=== PATIENT | female | born 1965 | race American Indian/Alaskan Native ===

== ENCOUNTER 2018-10-09 10:45 | Emergency (ER) | payer MEDICAID ==
[2018-10-09 10:50] VITALS: BP 166/84
--- NOTE | 2018-10-09 11:32 | Emergency Department Report ---
ED Recheck HPI - General Chief Complaint: High BP Stated Complaint: BP UP Time Seen by Provider: 10/09/18 11:30 Source: patient Mode of arrival: Ambulatory Limitations: No Limitations - History of Present Illness Initial Comments: Patient is a pleasant 52-year-old male comes to the ER today after receivinga family member is in a coma. She states that she has a history of hypertension and after getting the nose she feels like her blood pressure went up and that she got dizzy and panicked. On exam patient is calm laughing at her brushing to the emergency room and understands to her bedand anxiety played in her symptoms today. Patient is taking her blood pressure medicines. She drove herself to the emergency room. She is ambulatory and neurologically intact. She denies chest pain shortness of breath or dizziness or any other systemic complaints - Related Data Home Medications Medication Instructions Recorded Confirmed Last Taken Enalapril Maleate [Vasotec] 5 mg PO QDAY 06/03/13 06/03/13 06/03/13 09:00 Famotidine [Pepcid] 10 mg PO QDAY 06/03/13 06/03/13 06/03/13 09:00 Ibuprofen [Motrin] 800 mg PO TID 06/03/13 06/03/13 06/03/13 12:00 metFORMIN [Glucophage] 500 mg PO QDAY 06/03/13 06/03/13 06/03/13 08:00 Previous Rx's Medication Instructions Recorded Last Taken Type Cyclobenzaprine [Flexeril] 10 mg PO TID PRN #15 tablet 06/03/13 Unknown Rx HYDROcodone/APAP 10-325 [[place] 1 each PO Q6HR PRN #15 tablet 06/03/13 Unknown Rx 10/325] Ibuprofen [Motrin 800 MG tab] 800 mg PO TID #30 tablet 06/03/13 Unknown Rx predniSONE [Deltasone] 20 mg PO QDAY #5 tab 06/03/13 Unknown Rx Allergies Allergy/AdvReac Type Severity Reaction Status Date / Time Sulfa (Sulfonamide Allergy Swelling Verified 06/03/13 13:42 Antibiotics) ED Review of Systems ROS: Stated complaint: BP UP Other details as noted in HPI Comment: All other systems reviewed and negative ED Past Medical Hx - Past Medical History Hx Hypertension: Yes Hx Diabetes: Yes Hx GERD: Yes Additional medical history: bursitis of hip. sciatica - Surgical History Hx Cholecystectomy: Yes Additional Surgical History: hysterectomy. tubal ligation. ectopic - Social History Smoking Status: Never Smoker Substance Use Type: None - Medications Home Medications: Home Medications Medication Instructions Recorded Confirmed Last Taken Type Cyclobenzaprine [Flexeril] 10 mg PO TID PRN #15 tablet 06/03/13 Unknown Rx Enalapril Maleate [Vasotec] 5 mg PO QDAY 06/03/13 06/03/13 06/03/13 09:00 History Famotidine [Pepcid] 10 mg PO QDAY 06/03/13 06/03/13 06/03/13 09:00 History HYDROcodone/APAP 10-325 [[place] 1 each PO Q6HR PRN #15 tablet 06/03/13 Unknown Rx 10/325] Ibuprofen [Motrin 800 MG tab] 800 mg PO TID #30 tablet 06/03/13 Unknown Rx Ibuprofen [Motrin] 800 mg PO TID 06/03/13 06/03/13 06/03/13 12:00 History metFORMIN [Glucophage] 500 mg PO QDAY 06/03/13 06/03/13 06/03/13 08:00 History predniSONE [Deltasone] 20 mg PO QDAY #5 tab 06/03/13 Unknown Rx ED Physical Exam - General Limitations: No Limitations General appearance: alert, in no apparent distress - Head Head exam: Present: atraumatic, normocephalic - Eye Eye exam: Present: normal appearance, PERRL, EOMI - ENT ENT exam: Present: mucous membranes moist - Neck Neck exam: Present: normal inspection, full ROM - Respiratory Respiratory exam: Present: normal lung sounds bilaterally - Cardiovascular Cardiovascular Exam: Present: regular rate (100 on exam) - GI/Abdominal GI/Abdominal exam: Present: soft - Rectal Rectal exam: Present: deferred - Extremities Exam Extremities exam: Present: normal inspection, full ROM - Back Exam Back exam: Present: normal inspection, full ROM - Neurological Exam Neurological exam: Present: alert, oriented X3, CN II-XII intact, normal gait, reflexes normal - Psychiatric Psychiatric exam: Present: normal affect, normal mood - Skin Skin exam: Present: warm, dry, intact ED Course Vital Signs 10/09/18 10:48 Temperature 97.8 F Pulse Rate 114 H Respiratory 16 Rate Blood Pressure 166/84 [Left] O2 Sat by Pulse 100 Oximetry ED Recheck MDM - Core Measures Measure Exclusions: not indicated - Medical Decision Making Blood pressure on arrival was mildly elevated but not concerning given the situation. Patient got anxious when she received some bad news. She has been allowed to verbalize her concerns regarding her family member. Discussed with anxiety and how to cope with anxiety so doesn't affect her well-being. Patient is going to discharge home and follow-up with her primary care doctor. Critical care attestation.: If time is entered above; I have spent that time in minutes in the direct care of this critically ill patient, excluding procedure time. ED Disposition Clinical Impression: Blood pressure check, Anxiety Disposition: DC-01 TO HOME OR SELFCARE Is pt being admited?: No Does the pt Need Aspirin: No Condition: Stable Instructions: Anxiety (ED) Additional Instructions: Discharge Referrals: BARBARA BRAVO MD [Primary Care Provider] - 3-5 Days Time of Disposition: 11:31
== END 2018-10-09 11:35 | disposition home or self-care (01) ==
LOC: ED 10:45
DX: F41.9 Anxiety disorder, unspecified (principal); I10 Essential (primary) hypertension; E11.9 Type 2 diabetes mellitus without complications; K21.9 Gastro-esophageal reflux disease without esophagitis; Z90.710 Acquired absence of both cervix and uterus; Z90.49 Acquired absence of other specified parts of digestive tract; Z98.51 Tubal ligation status; Z79.899 Other long term (current) drug therapy; Z88.2 Allergy status to sulfonamides
CPT/HCPCS: 99282

== ENCOUNTER 2020-02-29 17:31 | Emergency (ER) | payer MEDICAID ==
[2020-02-29] MEDS ORDERED: ASPIRIN 325 MG TAB PO ONE (19:40)
[2020-02-29] MEDS ORDERED: hydrALAZINE 25 MG TAB PO ONE (19:41)
--- NOTE | 2020-02-29 20:03 | XRay Report ---
CHEST 2 VIEWS INDICATION / CLINICAL INFORMATION: chest pain. COMPARISON: None available. FINDINGS: SUPPORT DEVICES: None. HEART / MEDIASTINUM: No significant abnormality. LUNGS / PLEURA: No significant pulmonary or pleural abnormality. No pneumothorax. ADDITIONAL FINDINGS: No significant additional findings. IMPRESSION: 1. No acute findings. Signer Name: Daphne Wong MD Signed: 02/29/2020 7:58 PM Workstation Name: [id number]
[2020-02-29 20:04] LABS: Basophils % (Auto) 0.3 % (0.0-1.8); Eosinophils # (Auto) 0.1 K/mm3 (0.0-0.4); Eosinophils % (Auto) 1.4 % (0.0-4.3); Hematocrit 37.3 % (30.3-42.9); Hemoglobin 12.5 gm/dl (10.1-14.3); Lymphocytes # (Auto) 3.5 K/mm3 (1.2-5.4); Lymphocytes % (Auto) 36.7 % (13.4-35.0); Mean Corpuscular HGB Conc 33 % (30-34); Mean Corpuscular Volume 86 fl (79-97); Monocytes # (Auto) 0.6 K/mm3 (0.0-0.8); Monocytes % (Auto) 6.7 % (0.0-7.3); Platelet Count 255 K/mm3 (140-440); Red Blood Count 4.35 M/mm3 (3.65-5.03); Red Cell Distribution Width 15.6 % (13.2-15.2)
[2020-02-29 20:30] LABS: Alanine Aminotransferase 22 units/L (7-56); Albumin 3.5 g/dL (3.9-5); BUN/Creatinine Ratio 15; Blood Urea Nitrogen 16 mg/dL (7-17); Calcium 9.2 mg/dL (8.4-10.2); Hemolysis Index 6
[2020-02-29 21:34] VITALS: BP 168/78
--- NOTE | 2020-02-29 23:33 | Emergency Department Report ---
ED General Adult HPI - General Chief complaint: High BP Stated complaint: HBP Time Seen by Provider: 02/29/20 18:42 Source: patient Mode of arrival: Ambulatory Limitations: No Limitations - History of Present Illness Initial comments: Patient is a 54 yo AA female with a h/o HTN, NIDDM, Anxiety and GERD who presented to the ED with c/o acute onset persistently elevated BP, worsening anxiety characterized by left-sided chest pressure and headache x 8 days. Patient states that she seems has taking her BP medications but that her BP has been significantly elevated. Patient states that her left-sided chest pressure got worse after she arrived in the ED. Patient denies dyspnea, dizziness; headache, nausea, vomiting, diarrhea, fever, cough, palpitations, abdominal pain, syncope and seizures MD Complaint: Elevated BP; Anxious; left sided chest pain -: Sudden, days(s) (8) Location: chest Radiation: non-radiation Severity scale (0 -10): 4 Quality: aching, sharp Consistency: constant Improves with: none Worsens with: none Associated Symptoms: denies other symptoms, chest pain (left sided chest disco mfort). denies: confusion, cough, diaphoresis, fever/chills, headaches, loss of appetite, malaise, nausea/vomiting, rash, shortness of breath, syncope, weakness Treatments Prior to Arrival: none - Related Data Home Medications Medication Instructions Recorded Confirmed Last Taken Enalapril Maleate [Vasotec] 5 mg PO QDAY 06/03/13 06/03/13 06/03/13 09:00 Famotidine [Pepcid] 10 mg PO QDAY 06/03/13 06/03/13 06/03/13 09:00 Ibuprofen [Motrin] 800 mg PO TID 06/03/13 06/03/13 06/03/13 12:00 metFORMIN [Glucophage] 500 mg PO QDAY 06/03/13 06/03/13 06/03/13 08:00 Previous Rx's Medication Instructions Recorded Last Taken Type Cyclobenzaprine [Flexeril] 10 mg PO TID PRN #15 tablet 06/03/13 Unknown Rx HYDROcodone/APAP 10-325 [[place] 1 each PO Q6HR PRN #15 tablet 06/03/13 Unknown Rx 10/325] Ibuprofen [Motrin 800 MG tab] 800 mg PO TID #30 tablet 06/03/13 Unknown Rx predniSONE [Deltasone] 20 mg PO QDAY #5 tab 06/03/13 Unknown Rx Lisinopril/Hydrochlorothiazide 1 each PO DAILY #30 tablet 02/29/20 Unknown Rx [Zestoretic 10-12.5 mg Tablet] amLODIPine 10 mg PO DAILY #30 tab 02/29/20 Unknown Rx hydrOXYzine PAMOATE [Vistaril] 25 mg PO Q8HR PRN #30 capsule 02/29/20 Unknown Rx Allergies Allergy/AdvReac Type Severity Reaction Status Date / Time Sulfa (Sulfonamide Allergy Swelling Verified 06/03/13 13:42 Antibiotics) ED Review of Systems ROS: Stated complaint: HBP Other details as noted in HPI Constitutional: other (elevated BP). denies: chills, fever Eyes: denies: eye pain, eye discharge, vision change ENT: denies: ear pain, throat pain Respiratory: denies: cough, shortness of breath, wheezing Cardiovascular: chest pain (left sided chest discomfort). denies: palpitations Endocrine: no symptoms reported Gastrointestinal: denies: abdominal pain, nausea, vomiting, diarrhea Genitourinary: denies: urgency, dysuria, discharge Musculoskeletal: denies: back pain, joint swelling, arthralgia Skin: denies: rash, lesions Neurological: denies: headache, weakness, paresthesias Psychiatric: anxiety. denies: depression Hematological/Lymphatic: denies: easy bleeding, easy bruising ED Past Medical Hx - Past Medical History Previous Medical History?: Yes Hx Hypertension: Yes Hx Diabetes: Yes Hx GERD: Yes Hx Psychiatric Treatment: Yes (Anxiety) Additional medical history: bursitis of hip. sciatica - Surgical History Past Surgical History?: Yes Hx Cholecystectomy: Yes Additional Surgical History: hysterectomy. tubal ligation. ectopic - Social History Smoking Status: Never Smoker Substance Use Type: None - Medications Home Medications: Home Medications Medication Instructions Recorded Confirmed Last Taken Type Cyclobenzaprine [Flexeril] 10 mg PO TID PRN #15 tablet 06/03/13 Unknown Rx Enalapril Maleate [Vasotec] 5 mg PO QDAY 06/03/13 06/03/13 06/03/13 09:00 History Famotidine [Pepcid] 10 mg PO QDAY 06/03/13 06/03/13 06/03/13 09:00 History HYDROcodone/APAP 10-325 [[place] 1 each PO Q6HR PRN #15 tablet 06/03/13 Unknown Rx 10/325] Ibuprofen [Motrin 800 MG tab] 800 mg PO TID #30 tablet 06/03/13 Unknown Rx Ibuprofen [Motrin] 800 mg PO TID 06/03/13 06/03/13 06/03/13 12:00 History metFORMIN [Glucophage] 500 mg PO QDAY 06/03/13 06/03/13 06/03/13 08:00 History predniSONE [Deltasone] 20 mg PO QDAY #5 tab 06/03/13 Unknown Rx Lisinopril/Hydrochlorothiazide 1 each PO DAILY #30 tablet 02/29/20 Unknown Rx [Zestoretic 10-12.5 mg Tablet] amLODIPine 10 mg PO DAILY #30 tab 02/29/20 Unknown Rx hydrOXYzine PAMOATE [Vistaril] 25 mg PO Q8HR PRN #30 capsule 02/29/20 Unknown Rx ED Physical Exam - General Limitations: No Limitations General appearance: alert, in no apparent distress - Head Head exam: Present: atraumatic, normocephalic, normal inspection - Eye Eye exam: Present: normal appearance, PERRL, EOMI Pupils: Present: normal accommodation - ENT ENT exam: Present: normal exam, normal orophraynx, mucous membranes moist, TM's normal bilaterally, normal external ear exam - Neck Neck exam: Present: normal inspection, full ROM - Respiratory Respiratory exam: Present: normal lung sounds bilaterally. Absent: respiratory distress, wheezes, rales, rhonchi, stridor, chest wall tenderness, accessory muscle use, decreased breath sounds - Cardiovascular Cardiovascular Exam: Present: normal rhythm, tachycardia, normal heart sounds. Absent: systolic murmur, diastolic murmur, rubs, gallop - GI/Abdominal GI/Abdominal exam: Present: soft, normal bowel sounds. Absent: tenderness, guarding, rebound, hyperactive bowel sounds, hypoactive bowel sounds - Extremities Exam Extremities exam: Present: normal inspection, full ROM, normal capillary refill - Back Exam Back exam: Present: normal inspection, full ROM. Absent: tenderness, CVA tenderness (R), CVA tenderness (L), muscle spasm, paraspinal tenderness, vertebral tenderness - Neurological Exam Neurological exam: Present: alert, oriented X3, CN II-XII intact, normal gait, reflexes normal - Psychiatric Psychiatric exam: Present: normal affect, normal mood, anxious - Skin Skin exam: Present: warm, dry, intact, normal color. Absent: rash ED Course Vital Signs 02/29/20 02/29/20 02/29/20 17:42 19:22 21:30 Temperature 97.8 F 98.3 F 98.2 F Pulse Rate 107 H 97 H 93 H Respiratory 20 16 18 Rate Blood Pressure 168/78 Blood Pressure 177/99 169/99 [Right] O2 Sat by Pulse 100 99 100 Oximetry ED Medical Decision Making - Lab Data Result diagrams: 02/29/20 19:43 02/29/20 19:43 - Radiology Data Radiology results: report reviewed, [place] [address] XRay Report Signed Patient: JJ GARCIA MR# : [id number] : 1965 Acct:[id number] Age/Sex: 54 / F ADM Date: 02/29/20 Loc: ED Attending Dr: Ordering Physician: MELANI VARGAS Date of Service: 02/29/20 Procedure(s): XR chest routine 2V Accession Number(s): [id number] cc: MELANI VARGAS Fluoro Time In Minutes: CHEST 2 VIEWS INDICATION / CLINICAL INFORMATION: chest pain. COMPARISON: None available. FINDINGS: SUPPORT DEVICES: None. HEART / MEDIASTINUM: No significant abnormality. LUNGS / PLEURA: No significant pulmonary or pleural abnormality. No pneumothorax. ADDITIONAL FINDINGS: No significant additional findings. IMPRESSION: 1. No acute findings. Signer Name: Daphne Wong MD Signed: 02/29/2020 7:58 PM Workstation Name: [id number] Transcribed By: [facility] Dictated By: Daphne Wong MD Electronically Authenticated By: Daphne Wong MD Signed Date/Time: 02/29/201957 DD/ 57 TD/TT: - Medical Decision Making This is a 54 yo AA female with a h/o HTN, NIDDM, Anxiety and GERD who presented to the ED with c/o acute onset persistently elevated BP, worsening anxiety characterized by left-sided chest pressure and headache x 8 days. Patient states that she seems has taking her BP medications but that her BP has been signi ficantly elevated. Patient states that her left-sided chest pressure got worse after she arrived in the ED. In the ED patient is alert and oriented x3 and is in no acute distress but anxious with elevated BP. The EKG shows normal sinus rhythm with ventricular rate of 74 bpm, and no ST and T wave abnormalities. Chest x-ray shows no acute cardiopulmonary abnormalities or pneumonitis. Lab test results were reviewed and are all nonactionable including initial and repeat 3 hour troponin. Patient was treated in the ED with Blood pressure medications and aspirin. Patient's Heart score is 2 and is PERC negative per Well's criteria. Patient was discharged home on new blood pressure medications, anxiety medications and was advised to follow up with her PCP in 5-7 days for reevaluation. Patient was advised return to the ED immediately if symptoms get worse. - Differential Diagnosis ACS; Anxiety; Muscle strain; PE; Pneumonia Critical care attestation.: If time is entered above; I have spent that time in minutes in the direct care of this critically ill patient, excluding procedure time. ED Disposition Clinical Impression: Acute nonspecific chest pain with low risk of coronary artery disease, Unco ntrolled stage 2 hypertension, Anxiety as acute reaction to exceptional stress Disposition: DC-01 TO HOME OR SELFCARE Is pt being admited?: No Does the pt Need Aspirin: No Condition: Stable Instructions: Generalized Anxiety Disorder, Adult, Nonspecific Chest Pain, Adult, [id number], Hypertension, Adult, [id number], Chest Pain (ED), Hypertension (ED) Additional Instructions: The lab test results are nonactionable. Chest x-ray shows no acute cardiopulmonary abnormalities or pneumonitis. Therefore, take medications with food, drink plenty of fluids and follow up with your Primary Care Physician in 7-10 days for reevaluation. Return to the ED immediately if symptoms get worse. Prescriptions: amLODIPine 10 mg PO DAILY #30 tab hydrOXYzine PAMOATE [Vistaril] 25 mg PO Q8HR PRN #30 capsule PRN Reason: Anxiety Lisinopril/Hydrochlorothiazide [Zestoretic 10-12.5 mg Tablet] 1 each PO DAILY #30 tablet Referrals: [facility] [Provider Group] - 7-10 days Time of Disposition: 23:34 Print Language: KYRGYZ
== END 2020-03-01 00:02 | disposition home or self-care (01) ==
LOC: ED 17:31
DX: R07.89 Other chest pain (principal); F41.9 Anxiety disorder, unspecified; F43.8 Other reactions to severe stress; I10 Essential (primary) hypertension; K21.9 Gastro-esophageal reflux disease without esophagitis; E11.9 Type 2 diabetes mellitus without complications; Z98.51 Tubal ligation status; Z90.710 Acquired absence of both cervix and uterus; Z79.899 Other long term (current) drug therapy; Z88.2 Allergy status to sulfonamides
CPT/HCPCS: 36415; 71046; 80053; 82962; 84484; 85025; 93005

== ENCOUNTER 2020-04-14 17:45 | Emergency (ER) | payer MEDICAID ==
[2020-04-14 18:19] VITALS: BP 129/77
--- NOTE | 2020-04-14 18:22 | Event Note ---
ED Screening Note Date of service: 04/14/20 Time: 18:21 ED Screening Note: 54 yo female with a history of hypertension, diabetes presents with generalized body aches worsening x2 days. Patient states symptoms started about 1 weeks ago while she was in [place] This initial assessment/diagnostic orders/clinical plan/treatment(s) is/are subject to change based on patients health status, clinical progression and re- assessment by fellow clinical providers in the ED. Further treatment and workup at subsequent clinical providers discretion. Patient/guardian urged not to elope from the ED as their condition may be serious if not clinically assessed and managed. Initial orders include: cbc,bmp,cxr
--- NOTE | 2020-04-14 19:03 | XRay Report ---
XR chest routine 2V INDICATION / CLINICAL INFORMATION: pain COMPARISON: 02/29/2020 FINDINGS: SUPPORT DEVICES: None. HEART /PULMONARY VASCULATURE: No significant abnormality. LUNGS / PLEURA: No significant pulmonary or pleural abnormality. No pneumothorax. ADDITIONAL FINDINGS: No significant additional findings. IMPRESSION: 1. No acute findings. Signer Name: Owen Gil MD Signed: 04/14/2020 6:58 PM Workstation Name: [id number]
[2020-04-14 19:10] LABS: Basophils % (Auto) 0.5 % (0.0-1.8); Eosinophils # (Auto) 0.2 K/mm3 (0.0-0.4); Eosinophils % (Auto) 2.3 % (0.0-4.3); Hematocrit 37.6 % (30.3-42.9); Hemoglobin 12.5 gm/dl (10.1-14.3); Lymphocytes # (Auto) 3.4 K/mm3 (1.2-5.4); Lymphocytes % (Auto) 45.9 % (13.4-35.0); Mean Corpuscular HGB Conc 33 % (30-34); Mean Corpuscular Volume 87 fl (79-97); Monocytes # (Auto) 0.6 K/mm3 (0.0-0.8); Monocytes % (Auto) 8.2 % (0.0-7.3); Platelet Count 269 K/mm3 (140-440); Red Blood Count 4.33 M/mm3 (3.65-5.03)
[2020-04-14 19:28] LABS: BUN/Creatinine Ratio 16; Blood Urea Nitrogen 16 mg/dL (7-17); Calcium 9.2 mg/dL (8.4-10.2); Hemolysis Index 4
== END 2020-04-14 21:56 | disposition left against medical advice (07) ==
LOC: ED 17:45
DX: M79.10 Myalgia, unspecified site (principal); Z53.21 Procedure and treatment not carried out due to patient leaving prior to being seen by health care provider
CPT/HCPCS: 36415; 71046; 80048; 85025